=== PATIENT | male | born 1985 | race Caucasian/White ===

== ENCOUNTER 2017-01-31 12:16 | Emergency (ER) | payer OTHER, SELFPAY ==
[2017-01-31 12:29] VITALS: BMI 22.6
[2017-01-31] MEDS ORDERED: Sodium Chloride 0.9% 1,000 ML IV STA (13:33)
[2017-01-31] MEDS ORDERED: Multivitamin (MVI) 10 ML, Thiamine 100 MG, Folic Acid 1 MG in Sodium Chloride 0.9% 1,00... IV STA (13:37)
[2017-01-31] MEDS ORDERED: Sodium Chloride 0.9% 1,000 ML ONE (13:54)
[2017-01-31 14:24] LABS: BASO % 0.2 % (0.0-2.0); EOS % 0.1 % (0.0-4.0); HEMATOCRIT 48.9 % (35.0-51.0); LYMPH # 0.5 K/uL (1.0-4.3); LYMPH % 7.6 % (20.0-40.0); MEAN CELL VOLUME 86.1 fL (80.0-94.0); MEAN CORPUSCULAR HEMOGLOBIN 28.9 pg (27.0-31.0); MEAN CORPUSCULAR HGB CONC 33.5 g/dL (33.0-37.0); MONO # 0.5 K/uL (0.0-0.8); MONO % 7.6 % (0.0-10.0); NRBC % 0.1 % (0.0-2.0); PLATELET COUNT 283 K/uL (130-400); RED CELL DISTRIBUTION WIDTH 14.3 % (11.5-14.5); WHITE BLOOD COUNT 6.5 K/uL (4.8-10.8)
[2017-01-31 14:34] LABS: CHLORIDE 96 mmol/L (98-107)
[2017-01-31 14:35] LABS: POTASSIUM 3.7 mmol/L (3.6-5.2); SODIUM 137 mmol/L (132-148)
[2017-01-31 14:36] LABS: RBC URINE 8 /hpf (0-3); URINE BILIRUBIN NEGATIVE (NEGATIVE); URINE COLOR Amber (YELLOW); URINE GLUCOSE (UA) NORMAL (Normal); URINE KETONE TRACE mg/dL (NEGATIVE); URINE LEUKOCYTE ESTERASE NEG Leu/uL (Negative); URINE PROTEIN 2+ mg/dL (NEGATIVE); URINE UROBILINOGEN NORMAL mg/dL (0.2-1.0); WBC URINE 3 /hpf (0-5)
[2017-01-31 14:37] LABS: ALB/GLOB RATIO 1.3 (1.0-2.1); AST/SGOT 30 U/L (17-59); BILIRUBIN,TOTAL 0.8 mg/dL (0.2-1.3); CARBON DIOXIDE 28 mmol/L (22-30); GFR AFRICAN-AMERICAN > 60; URINE BLOOD TRACE (NEGATIVE)
[2017-01-31 14:38] LABS: ALCOHOL SERUM < 10 mg/dl (0-10); ALKALINE PHOSPHATASE 68 U/L (38-126); ALT/SGPT 32 U/L (21-72); BLOOD UREA NITROGEN 11 mg/dL (9-20); CALCIUM 9.5 mg/dl (8.6-10.4); GLUCOSE,RANDOM 111 mg/dL (75-110)
[2017-01-31 14:53] LABS: NEUTROPHIL 83 % (50-75); TOTAL CELLS COUNTED 100
--- NOTE | 2017-01-31 15:00 | C.PDOC ---
History Of Present Illness 31 y/o male presents to the emergency department complaining that he is "not feeling well," he feels anxious and is hyperventilating s/p smoking marijuana this morning. He also notes a tingling sensation "all over [his] body." Admits to drinking alcohol for the last four days, last drink yesterday. Patient denies fever, chest pain, shortness of breath, or other complaints. Chief Complaint (Nursing): Medical Clearance History Per: Patient History/Exam Limitations: no limitations Onset/Duration Of Symptoms: Unknown Current Symptoms Are (Timing): Still Present Severity: Moderate Context: hyperventilating and anxity after smoking weed Past Medical History Vital Signs: Last Vital Signs Temp 99.3 F 01/31/17 18:57 Pulse 95 H 01/31/17 18:57 Resp 18 01/31/17 18:57 BP 119/68 01/31/17 18:57 Pulse Ox 99 01/31/17 18:57 - [facility] Procedures PERITONSILLAR I & D (08/20/14) Family History: States: Unknown Family Hx - Social History Hx Tobacco Use: No Hx Alcohol Use: No Hx Substance Use: No - Immunization History Hx Tetanus Toxoid Vaccination: No Hx Influenza Vaccination: No Hx Pneumococcal Vaccination: No Review Of Systems Except As Marked, All Systems Reviewed And Found Negative. Constitutional: Positive for: Other ("not feeling well"). Negative for: Fever Cardiovascular: Negative for: Chest Pain Respiratory: Positive for: Other ("hyperventilating"). Negative for: Shortness of Breath Neurological: Positive for: Other ("tingling" all over body) Psych: Positive for: Anxiety Physical Exam - Physical Exam Appears: Non-toxic, No Acute Distress Skin: Normal Color, Warm, Dry Head: Atraumatic, Normacephalic Eye(s): bilateral: Normal Inspection, PERRL, EOMI Oral Mucosa: Moist Neck: Normal, Normal ROM Chest: Symmetrical Cardiovascular: Rhythm Regular Respiratory: Normal Breath Sounds, No Rales, No Rhonchi, No Wheezing Gastrointestinal/Abdominal: Normal Exam, Soft, No Tenderness Back: Normal Inspection Extremity: Normal ROM, No Tenderness, No Swelling, Other (tremors observed to upper extremities) Neurological/Psych: Oriented x3, Normal Speech, Normal Cognition ED Course And Treatment - Laboratory Results Result Diagrams: 01/31/17 14:18 01/31/17 14:18 ECG: Interpreted By Me ECG Rhythm: Sinus Tachycardia ECG Interpretation: No Acute Changes Rate From EC (bpm) O2 Sat by Pulse Oximetry: 99 (ra) Pulse Ox Interpretation: Normal Progress Note: EKG, Blood Work, and Urinalysis were ordered. Patient was treated with Ativan IVP and Banana Bag IV. On re-evaluation, patient feels better, not tachycardic, no hyperventilation anymore. patient will be d/c home with PMD follow up. Disposition - Disposition Referrals: [facility] [Outside] Disposition: HOME/ ROUTINE Disposition Time: 18:54 Condition: IMPROVED Additional Instructions: Follow up in Clinic within 1-2 days. Return to Ed if feel worse. Instructions: Abuse of Alcohol (ED), Cannabis Abuse (ED), Anxiety (ED), Hyperventilation (ED) Print Language: HEBREW - Clinical Impression Clinical Impression: Hyperventilation, Cannabis abuse, Alcohol abuse - PA / KEY SANDER / Resident Statement MD/DO has reviewed & agrees with the documentation as recorded. - Scribe Statement The provider has reviewed the documentation as recorded by the Scribe (Mamie Taylor) All medical record entries made by the Scribe were at my direction and personally dictated by me. I have reviewed the chart and agree that the record accurately reflects my personal performance of the history, physical exam, medical decision making, and the department course for this patient. I have also personally directed, reviewed, and agree with the discharge instructions and disposition.
[2017-01-31 18:56] VITALS: O2SAT 99
[2017-01-31 18:58] VITALS: BP 119/68; PULSE 95; RESP 18; TEMP 99.3
--- NOTE | 2017-02-02 06:26 | CARD ---
APPROVED REPORT EKG Measurement Heart [id number] VT [id number] <Conclusion> Sinus tachycardia Otherwise normal ECG
== END 2017-01-31 19:05 | disposition home or self-care (01) ==
LOC: C.ER 12:16
DX: R06.4 Hyperventilation (principal); F12.10 Cannabis abuse, uncomplicated; F10.10 Alcohol abuse, uncomplicated; Y90.9 Presence of alcohol in blood, level not specified
CPT/HCPCS: 80053; 81001; 82550; 85025; 93005; 96361; 96374; 96375; 99283; G0480; J2060; J3411; J7040

== ENCOUNTER 2019-03-31 10:07 | Emergency (ER) | payer OTHER ==
[2019-03-31 10:15] VITALS: BMI 35.9
[2019-03-31] MEDS ORDERED: DiphenhydrAMINE 50 mg/ml Inj IVP STA (10:35)
[2019-03-31] MEDS ORDERED: DiphenhydrAMINE 50 mg/ml Inj ONE (11:15)
[2019-03-31 11:24] LABS: BASO % 0.6 % (0.0-2.0); EOS # 0.1 K/uL (0.0-0.7); EOS % 1.2 % (0.0-4.0); HEMOGLOBIN 15.8 g/dL (12.0-18.0); LYMPH # 0.8 K/uL (1.0-4.3); LYMPH % 16.9 % (20.0-40.0); MEAN CORPUSCULAR HEMOGLOBIN 30.8 pg (27.0-31.0); MEAN CORPUSCULAR HGB CONC 34.5 g/dL (33.0-37.0); MONO # 0.3 K/uL (0.0-0.8); MONO % 7.7 % (0.0-10.0); NEUT # 3.3 K/uL (1.8-7.0); NEUT % 73.6 % (50.0-75.0); RBC 5.12 Mil/uL (4.40-5.90); WHITE BLOOD COUNT 4.4 K/uL (4.8-10.8)
[2019-03-31 11:28] LABS: MEAN CELL VOLUME 89.1 fL (80.0-94.0)
[2019-03-31 11:36] LABS: PROTHROMBIN TIME 11.2 SECONDS (9.7-12.2)
--- NOTE | 2019-03-31 11:37 | CT ---
Date of service: 03/31/2019 PROCEDURE: CT HEAD WITHOUT CONTRAST. HISTORY: Headache COMPARISON: 11/30/2012. TECHNIQUE: Axial computed tomography images were obtained through the head/brain without intravenous contrast. Radiation dose: Total exam DLP = 980.97 mGy-cm. This CT exam was performed using one or more of the following dose reduction techniques: Automated exposure control, adjustment of the mA and/or kV according to patient size, and/or use of iterative reconstruction technique. FINDINGS: HEMORRHAGE: No intracranial hemorrhage. BRAIN: [place]-white matter differentiation is preserved. There is no mass, mass effect or abnormal extra-axial fluid collection. There is no territorial infarction. The midline sagittal structures are normal. VENTRICLES: The ventricles are normal in size, shape and configuration. CALVARIUM: There is no calvarial fracture or extracranial soft tissue swelling. PARANASAL SINUSES: There is mild mucoperiosteal thickening in the ethmoid air cells. The remaining included paranasal sinuses are clear. MASTOID AIR CELLS: Predominantly clear. OTHER FINDINGS: None. IMPRESSION: No acute intracranial abnormality.
[2019-03-31 11:38] LABS: ALB/GLOB RATIO 1.5 (1.0-2.1); ALBUMIN 4.6 g/dL (3.5-5.0); ALT/SGPT 21 U/L (21-72); AST/SGOT 28 U/L (17-59); BLOOD UREA NITROGEN 12 mg/dL (9-20); CALCIUM 9.6 mg/dl (8.6-10.4); GFR NON-AFRICAN AMERICAN > 60
--- NOTE | 2019-03-31 11:42 | C.PDOC ---
History Of Present Illness 33 y/o male,w/PMhx of substance abuse, presents to the ER complaining of headache which began today. Patient describes the headache after smoking marjuana. Patient reports that he smoked "little" marijuana today. seen in past for etoh. no fall. Denies having fever,chills, dizziness,CP,SOB, nausea, and vomiting. Time Seen by Provider: 03/31/19 10:31 Chief Complaint (Nursing): Headache History Per: Patient History/Exam Limitations: no limitations Onset/Duration Of Symptoms: Hrs Current Symptoms Are (Timing): Still Present Severity: Moderate Past Medical History Reviewed: Historical Data, Nursing Documentation, Vital Signs Vital Signs: Last Vital Signs Temp 98.8 F 03/31/19 10:14 Pulse 92 H 03/31/19 10:14 Resp 18 03/31/19 10:14 BP 150/95 H 03/31/19 10:14 Pulse Ox 97 03/31/19 10:14 Primary Care Provider: FAMILY PROVIDER,NO - Medical History PMH: No Chronic Diseases Surgical History: No Surg Hx - [facility] Procedures PERITONSILLAR I & D (08/20/14) Family History: States: No Known Family Hx - Social History Hx Tobacco Use: No Hx Alcohol Use: Yes Hx Substance Use: Yes - Immunization History Hx Tetanus Toxoid Vaccination: No Hx Influenza Vaccination: No Hx Pneumococcal Vaccination: No Review Of Systems Except As Marked, All Systems Reviewed And Found Negative. Constitutional: Negative for: Fever, Chills Cardiovascular: Negative for: Chest Pain Respiratory: Negative for: Shortness of Breath Gastrointestinal: Negative for: Nausea, Vomiting, Abdominal Pain Neurological: Positive for: Headache. Negative for: Dizziness Physical Exam - Physical Exam Appears: Non-toxic, No Acute Distress Skin: Normal Color, Warm, Dry Head: Atraumatic, Normacephalic Eye(s): bilateral: Normal Inspection, PERRL, EOMI Nose: Normal Oral Mucosa: Moist Neck: Supple Chest: Symmetrical Cardiovascular: Rhythm Regular Respiratory: Normal Breath Sounds, No Rales, No Rhonchi, No Wheezing Gastrointestinal/Abdominal: Normal Exam, Soft, No Tenderness, No Guarding, No Rebound Neurological/Psych: Oriented x3, Normal Speech, Normal Motor, Normal Sensation ED Course And Treatment - Laboratory Results Result Diagrams: 03/31/19 11:18 03/31/19 11:18 O2 Sat by Pulse Oximetry: 97 (RA) Pulse Ox Interpretation: Normal Medical Decision Making Medical Decision Making: jeffries ro intracrnial metbolic traumic etiology - labs imging pending no temporal ttp. Plan: --Labs --CT-Head --Benadryl IV --Reglan IV --Tylenol PO pt symptoms improve.d imaging labs neg. stable for dc. no thunderclap featuers. <[address] sensitve for sah. Disposition - Disposition Referrals: Justin Dobson MD [Staff Provider] - Disposition: HOME/ ROUTINE Disposition Time: 12:00 Condition: STABLE Additional Instructions: please see specialist. reutnr to er with worsening Instructions: Tension Headache Forms: [employer] (Estonian) - Clinical Impression Clinical Impression: Headache - Scribe Statement The provider has reviewed the documentation as recorded by the Scribe Jabier Luo Provider Attestation: All medical record entries made by the Scribe were at my direction and personally dictated by me. I have reviewed the chart and agree that the record accurately reflects my personal performance of the history, physical exam, medical decision making, and the department course for this patient. I have also personally directed, reviewed, and agree with the discharge instructions and disposition.
[2019-03-31 12:11] VITALS: BP 147/89; PULSE 89; RESP 17; TEMP 98
[2019-03-31 13:22] VITALS: O2SAT 97
== END 2019-03-31 12:10 | disposition home or self-care (01) ==
LOC: C.ER 10:07
DX: R51 Headache (principal)
CPT/HCPCS: 70450; 80053; 85025; 85610; 85730; 96374; 96375; 99285; J1200; J2765